=== PATIENT | male | born 1980 | race Caucasian/White ===

== ENCOUNTER 2019-09-02 23:54 | Emergency (ER) | payer OTHER ==
[~2019-09-02] VITALS: Ht 170.2 cm; Wt 68.0 kg
--- NOTE | 2019-09-02 23:55 | NUR ---
BIB [facility] FOR PREBOOK CLEARANCE FOR ELEVATED HEART RATE. PT SMELLS OF ALCHOL AND HAS VOMIT ON SHIRT. PT REFUSING TO ASK QUESTIONS AND HAS SLURRED SPEECH. PT AWAKE AND ALERT. PT CONTINUES TO TRY TO LAY ON GROUND REPEATEDLY AND STATES HE IS NAUSEOUS BUT NO ACTIVE VOMITING.
[2019-09-02 23:58] VITALS: BP 120/60
--- NOTE | 2019-09-03 00:38 | NUR ---
PT TAKEN TO CT
--- NOTE | 2019-09-03 00:40 | NUR ---
DPatient discharged with v/s stable. Written and verbal after care instructions given and explained. Patient verbalized understanding. Ambulatory with steady gait. All questions addressed prior to discharge. Advised to follow up with PMD. PT IN [facility]USTODY W/ [facility].
[2019-09-03 00:42] VITALS: BP 120/60
== END 2019-09-03 00:40 ==
LOC: MED 23:54
DX: F10.129 Alcohol abuse with intoxication, unspecified (principal); R07.81 Pleurodynia; Z02.89 Encounter for other administrative examinations
CPT/HCPCS: 99283